=== PATIENT | female | born 1970 | race Caucasian/White ===

== ENCOUNTER 2017-03-25 10:58 | Inpatient (IN) | payer BC ==
[~2017-03-25] VITALS: Ht 172.7 cm; Wt 167.5 kg
--- NOTE | ~2017-03-25 | CO ---
Unit #: [id number] #: [id number] Patient: RUDI PEREZ [id number] [facility] [address] [facility]. [place], [place] [address] [id number] MR#: [id number] NAME: RUDI PEREZ ROOM: 237 Age: 47 Sex: F Admission Date: 03/25/2017 : 1970 Attending Physician: Alvin Villarreal M.D. Consultation Date: 03/25/2017 CONSULTATION REPORT HISTORY AND EXAM Miss Perez is a 47-year-old female who is otherwise healthy, who presented to [facility] emergency room with complaints of worsening episodic right upper quadrant pain and associated nausea. She denied fever, chills, vomiting or jaundice. She said she has been having episodic discomfort in the right upper quadrant radiating to the back for the last three months. In the emergency room a CT scan showed gallbladder wall thickening and a followup ultrasound showed small stones with wall thickening and pericholecystic fluid with a normal common bile duct. She was transferred here to [facility] for further evaluation and treatment. PAST MEDICAL HISTORY 1, para 1 by vaginal delivery. ALLERGIES No allergies to medication. HOME MEDICATION She is not on any home medications. FAMILY HISTORY She is unaware of any chronic or inheritable diseases. SOCIAL HISTORY Single, having been eight years ago. She has one biological child and five adopted children, denies the use of tobacco, alcohol or recreational drugs. She works for [email or web address]. REVIEW OF SYSTEMS As above. No fever, chills, night sweats, jaundice, or vomiting. PHYSICAL EXAMINATION VITAL SIGNS: On current examination temperature is 97.9, pulse 70, respirations 16, blood pressure 145/71. GENERAL: She is awake, alert and oriented, in no acute distress. Multiple family members in the room. She is obese. HEENT: Unremarkable. CARDIAC EXAM: Regular rhythm. LUNGS: Clear. ABDOMEN: No mass. No rebound. She does have some voluntary guarding in the right upper quadrant. EXTREMITIES: No edema. Unit #: [id number] #: [id number] Patient: RUDI PEREZ NEUROLOGICLALY: Grossly intact. SKIN: No skin rash or lesions. DIAGNOSTIC STUDIES LABORATORY: Comprehensive metabolic panel is within normal limits. CBC is unremarkable. Amylase and lipase are normal. Urinalysis and test are pending. ASSESSMENT AND PLAN The patient presents with episodic right upper quadrant pain that is worsening and on ultrasound and CT has findings consistent with early acute cholecystitis. She has been admitted to the hospital for hydration and antibiotics and we will add her onto the surgery schedule in the morning. I discussed laparoscopic cholecystectomy including risks, benefits, complications and the possibility of conversion to an open procedure. She understands and agrees to proceed. Dictated by... Rafal Stewart/matthias TD: 03/25/2017 18:57 JOB #: [id number] CONSULTATION REPORT Page 1 of 1 X Alvin Villarreal MD X CONSULTATION REPORT
--- NOTE | ~2017-03-25 | OR ---
Unit #: [id number] #: [id number] Patient: RUDI PEREZ [id number] [address] [place], [place] [address] [id number] I MR#: [id number] NAME: RUDI PEREZ ROOM: 237 Date of Procedure: 03/26/2017 Admission Date: 03/25/2017 Surgeon: Jean Claude Elizabeth Jr., M.D. : 1970 Attending Physician: Alvin Villarreal M.D. OPERATIVE REPORT INDICATIONS FOR PROCEDURE The patient is a 47-year-old morbidly obese white female, who presented complaining of abdominal pain, was worked up noted to have evidence of cholelithiasis with cholecystitis. It was felt the patient needed a laparoscopic cholecystectomy. She is brought to the operating room at this time for this procedure. She understands the procedure including the risks, including that of common duct injury, biliary leak, and bleeding, and intra-abdominal organ injury, and consents. PREOPERATIVE DIAGNOSES Chronic cholecystitis with cholelithiasis and biliary colic. POSTOPERATIVE DIAGNOSIS Chronic cholecystitis with cholelithiasis and biliary colic. ANESTHESIA General with endotracheal intubation and 0.5% Marcaine with epinephrine locally. PROCEDURE PERFORMED Laparoscopic cholecystectomy. DESCRIPTION OF PROCEDURE The patient was positioned in supine position. After being anesthetized and intubated, she was prepped and draped in routine fashion for laparoscopic cholecystectomy. A small supraumbilical incision was made approximately a centimeter in length. This was carried down to the fascia. The fascia in the umbilicus was lifted with 2 Israel clamps and a Veress needle introduced in the abdomen. The abdomen was then inflated with CO2 gas. A 5-mm port was introduced into the abdomen followed by the camera. There was no evidence of any injury related to introduction of the port or the Veress needle. Brief intra-abdominal exploration was carried out. The patient was noted to have a large globular liver and chronically inflamed gallbladder. Also, the omentum was very significant. Two 5-mm ports were placed laterally and an 11-mm port just to the right of the upper midline. An additional 5-mm port placed in the right upper quadrant abdominal wall area. At this point, the gallbladder was lifted. Dissection was carried out in the triangle of Calot, cystic duct which was small only 1 mm or so in diameter was isolated, hemoclipped x4 and divided approximately a 1 cm from its junction with the common duct. The common duct appeared normal. The cystic artery was identified, hemoclipped x3, and divided. The gallbladder was then removed from the bed with a hook Unit #: [id number] #: [id number] Patient: RUDI PEREZ cautery using a current of 20. After it was released, it was placed in an EndoCatch bag and brought out through the larger port site and sent to pathology. The larger port was replaced. Subhepatic space checked. There was some oozing from the gallbladder bed itself from acute and chronic inflammation and this was controlled with the Bovie cautery. It was decided that the area should be drained with a Heriberto-Kirk drain, so therefore, a 10 mm Heriberto-Kirk drain was placed in the subhepatic space and brought out through the lateral port site. Again, the area was checked. The clips on the cystic duct and cystic artery were intact with no evidence of any leak or bleeding. After hemostasis was again noted, the ports removed. There was no evidence of any bleeding from the port sites. The port sites were injected with 0.5% Marcaine with epinephrine locally. The fascia in the larger port site was approximated with a [id number] 0 Vicryl suture. Wounds were again irrigated. After hemostasis achieved with Bovie cautery, the skin edges were approximated with stainless-steel skin clips and skin stapling device. Sterile dressings were applied externally. Estimated blood loss less than 150 mL. The patient received less than 2000 mL crystalloid solution during the procedure. Sponges and instrument counts were correct x3. There was one drain used, which was a 10 mm Heriberto-Kirk drain used in the subhepatic space and no complications. The patient was taken to the recovery room with stable vital signs in satisfactory condition. Dictated by... Jean Claude Elizabeth Jr., M.D. JMB/samantha TD: 03/26/2017 14:43 JOB #: [id number] OPERATIVE REPORT Page 1 of 1 X Jean Claude Elizabeth MD X PROCEDURE OPERATIVE NOTE
--- NOTE | ~2017-03-25 | OR ---
Unit #: [id number] #: [id number] Patient: RUDI PEREZ [id number] [facility]. [place], [place] [address] [id number] I MR#: [id number] NAME: RUDI PEREZ ROOM: 237 Date of Procedure: 03/29/2017 Admission Date: 03/25/2017 Surgeon: Marcus Palmer M.D. : 1970 Attending Physician: Alvin Villarreal M.D. OPERATIVE REPORT PREOPERATIVE DIAGNOSES The patient is status post laparoscopic cholecystectomy and has demonstrable bile leak on HIDA scan. She has biliary drainage from the CONNIE drain. PROCEDURES PERFORMED Endoscopic retrograde cholangiopancreatography and biliary stent placement. POSTOPERATIVE DIAGNOSES 1. A preliminary upper gastrointestinal endoscopy was normal. 2. The papillary and ampulla were located in the normal position. The cholangiogram demonstrated bile leak near the cystic duct stump. After a limited sphincterotomy and demonstration of the bile leak, the duct was swept with a 9 to 12 mm retrieval balloon and no stones or debris was delivered. A 10-Polish x 7 cm biliary stent was then deployed with excellent biliary drainage demonstrated. RECOMMENDATIONS The patient's biliary drainage from the CONNIE drain should resolve over the next 24 to 48 hours. She can be started on diet as tolerated. We will repeat CBC and CMP tomorrow morning. She should be able to go home over the weekend. She will require a repeat ERCP and stent removal in 8 weeks' time. SEDATION USED MAC. DESCRIPTION OF PROCEDURE Following detailed explanations of potential risks and complications of an ERCP, namely perforation, bleeding, and complications related to sedation and pancreatitis, the patient was brought to GI lab and laid in the left semiprone position. Sedation using general anesthesia was given. A preliminary upper GI endoscopy was performed. The latter was normal. The lateral viewing duodenoscope was then advanced through the oral cavity into the esophagus and advanced into the stomach. Pylorus was intubated in usual fashion. Scope was advanced in deep descending duodenum. Upon shortening of the scope, major papilla and ampullary area was visualized en face. Using guidewire based technique, the common bile duct was cannulated in the first attempt. Contrast cholangiogram was obtained. The latter showed multiple filling defects in the common bile duct, which were most likely were air bubbles. We then proceeded with a limited sphincterotomy, about 9 to 10 mm sphincterotomy was performed. Using a 9 Unit #: [id number] #: [id number] Patient: ANA,RUDI to 12 mm retrieval balloon, the duct was then swept couple times. No stones or debris was delivered. An occlusion cholangiogram demonstrated leak near the cystic duct stump. A 10-Polish x 7 cm biliary stent was then deployed. Excellent biliary drainage was established. The scope and the accessories were then withdrawn. The patient returned to the recovery area. She tolerated the procedure without any postprocedure complications. Dictated by... Rafal Coughlin/samantha TD: 03/29/2017 19:35 JOB #: [id number] CC: Rafal Stewart III, M.D. OPERATIVE REPORT Page 1 of 1 X Marcus Palmer MD X PROCEDURE OPERATIVE NOTE
--- NOTE | ~2017-03-25 | BMI ---
[facility] DATE: 03/26/17 Patient: RUDI PEREZ Physician: SELVIN Address: [address] Room/Bed: [address] [place] [address], Zip: [place] [address] Admit Date: 03/25/17 Date of : [birth year] Height: 5 8 Weight: 369 167.5 HIGH BMI NOTE: DX: 47 Y.O. FEMALE ADMITTED FOR CHOLECYSTITIS ANTHROPOMETRICS: 5'8", WT: 369# (168 KG), BMI: 56.1 DIET: NPO RECOMMENDATIONS: 1. ONCE MEDICALLY FEASIBLE, ADVANCE DIET INDICATED TO CONSISTENT CARBOHYRDRATE + HEALTHY HEART TO PROMOTE GRADUAL WEIGHT LOSS TOWARDS HEALTHY BMI (19.0-25.0) OR +/-10%IBW RD WILL F/U PER PROTOCOL Respectfully, KEE LOOMIS MS, RD, LD [facility] cc: client file
--- NOTE | ~2017-03-25 | CR84 ---
[facility] A Service of [facility] RADIOLOGY TEXT RESULTS PATIENT: RUDI PEREZ LOCATION: [facility] : [birth year] UNIT #: [id number] AGE: [address]: Alvin Villarreal MD SEX: F ORDER DR: [id number] [facility]. [place], [place] [address] [id number] I MR#: [id number] Acc #: [id number] NAME: RUDI PEREZ : 1970 SEX: F STUDY DATE/TIME: 03/29/2017 16:34 UNIT: A ROOM: 237 STUDY DESCRIPTION: CR ERCP Biliary and Pancr SI Attending Physician: Alvin Villarreal M.D. Ordering Physician: Marcus Palmer M.D. MEDICAL IMAGING REPORT This report is preliminary unless electronic signature is present EXAM ERCP with fluoroscopy. DATE 03/29/2017 HISTORY Bile leak, status post laparoscopic cholecystectomy. COMPARISON HIDA scan with Kinevac 03/28/2017. Gallbladder ultrasound 03/25/2017. FINDINGS Five spot fluoroscopic images were obtained during ERCP procedure performed by Dr. Palmer. Fluoroscopy time 32 seconds was documented by the technologist. Contrast was injected in a retrograde fashion into the common bile ducts. Cholecystectomy clips are in place. There is active contrast extravasation near the patient's cystic duct stump. Findings are consistent with patient's known history of bile leak. No CBD stricture or retained CBD stones identified and the intrahepatic bile ducts are normal. Pancreatic duct was not sought. Please refer to the endoscopist's report for additional findings and recommendations. Dictated by... Mare Small M.D. [facility] A Service of [facility] RADIOLOGY TEXT RESULTS PATIENT: RUDI PEREZ LOCATION: [facility] : 74 UNIT #: [id number] AGE: [address]: Alvin Villarreal MD SEX: F ORDER DR: THIS IS AN ELECTRONICALLY VERIFIED REPORT Mare Small M.D. at 03/30/2017 9:41 PM Geno TD: 03/30/2017 16:13 JOB #: [id number] MEDICAL IMAGING REPORT Page 1 of 1 COPY
--- NOTE | ~2017-03-25 | DS ---
Unit #: [id number] #: [id number] Patient: RUDI PEREZ [id number] [address] [address] [id number] I MR#: [id number] NAME: RUDI PEREZ ROOM: 237 Age: 47 Sex: F Admission Date: 03/25/2017 : 1970 Discharge Date: 03/30/2017 Attending Physician: Alvin Villarreal M.D. DISCHARGE SUMMARY DIAGNOSES 1. Cholecystitis. 2. Cystic duct stump leak. PROCEDURES 1. Laparoscopic cholecystectomy. 2. ERCP with stent placement. HOSPITAL COURSE The patient is a 47-year-old lady who presented with acute cholecystitis. She underwent laparoscopic cholecystectomy. She was putting out bile from her Heriberto-Kirk drain. GI medicine saw and performed ERCP with stent. They identified a cystic duct stump leak. Drainage went down. She tolerated a regular diet. Labs improved. DISPOSITION The patient will be discharged home in good condition. DIET She is to follow a regular diet as tolerated. ACTIVITY Activity levels were discussed. FOLLOWUP She is to follow up with Dr. Elizabeth in one week. MEDICATIONS Regular home medications and [place] 7.5 mg q.4 p.r.n. Dictated by... Hao Trevino M.D. ISAURA/veronica TD: 03/30/2017 11:32 JOB #: [id number] Unit #: [id number] #: [id number] Patient: RUDI PEREZ DISCHARGE SUMMARY Page 1 of 1 X Hao Trevino MD X DISCHARGE SUMMARY
--- NOTE | ~2017-03-25 | NM21 ---
[facility] A Service of [facility] RADIOLOGY TEXT RESULTS PATIENT: RUDI PEREZ LOCATION: [facility] : 74 UNIT #: [id number] AGE: [address]: Alvin Villarreal MD SEX: F ORDER DR: [id number] [facility]. [place], [place] [address] [id number] I MR#: [id number] Acc #: [id number] NAME: RUDI PEREZ : 1970 SEX: F STUDY DATE/TIME: 03/28/2017 10:41 UNIT: [facility] ROOM: 237 STUDY DESCRIPTION: NM Hepatobiliary W GB Attending Physician: Alvin Villarreal M.D. Ordering Physician: Chele Mcrae III, M.D. MEDICAL IMAGING REPORT This report is preliminary unless electronic signature is present EXAM HIDA scan INDICATIONS Status post cholecystectomy March 26, 2017. The patient has a CONNIE drain within the right upper quadrant and has had increasing drainage and bilious material from this drain. Exam is requested to evaluate for bile leak. TECHNIQUE The patient was administered 6 mCi of technetium 99m Choletec. Sequential images were obtained through the right upper quadrant. FINDINGS There is prompt and homogeneous radiotracer uptake identified within the liver and radiotracer is seen within the small bowel on the 15-minute images. There is however bile seen accumulating within the patient's surgical drain and within the right upper quadrant characteristic of a bile leak. IMPRESSION This study is positive for a bile leak with radiotracer identified within the patient's CONNIE drain. Findings were called to Dr. Mcrae's office at his request. Dictated by... Naomie Ferris M.D. THIS IS AN ELECTRONICALLY VERIFIED REPORT Naomie Ferris M.D. at 03/28/2017 5:07 PM AFF/to TD: 03/28/2017 16:13 [facility] A Service of [facility] RADIOLOGY TEXT RESULTS PATIENT: RUDI PEREZ LOCATION: [facility] 01 : 74 UNIT #: [id number] AGE: [address]: Alvin Villarreal MD SEX: F ORDER DR: JOB #: [id number] MEDICAL IMAGING REPORT Page 1 of 1 COPY
--- NOTE | ~2017-03-25 | CO ---
Unit #: [id number] #: [id number] Patient: RUDI PEREZ [id number] [address] [address] [id number] I MR#: [id number] NAME: RUDI PEREZ ROOM: 237 Age: 47 Sex: F Admission Date: 03/25/2017 : 1970 Attending Physician: Alvin Villarreal M.D. Primary Care Physician: Chele Mcrae III, M.D. Consultation Date: 03/28/2017 CONSULTATION REPORT REASON FOR CONSULTATION Bile leak. HISTORY Ms. Perez is a 47-year-old white female who underwent laparoscopic cholecystectomy on 03/26/2017 after being seen with recurrent right upper quadrant abdominal pain for the past several months. These are intermittent and frequent. The patient was found to have a CT evidence of gallbladder wall thickening and gallstones and pericholecystic fluid with a normal bile duct. Today she underwent a HIDA scan and was found to have a bile leak. PAST MEDICAL HISTORY The patient has no significant past medical history. ALLERGIES She has no known drug allergies. MEDICATIONS Not on any regular medications. FAMILY HISTORY None of colon, pancreatic cancer or liver disease. SOCIAL HISTORY She has been and has one biological child and five adopted children. She does not smoke, drink alcohol, and works for [employer]. REVIEW OF SYSTEMS A detailed review of organ system does not reveal any recent weight loss. No history of fevers, chills or rigors. No history of headaches, seizures, chest pain or syncope. No history of cough, expectoration, or hemoptysis. No history of dysuria, hematuria or pyuria. No history of focal seizures or weakness. PHYSICAL EXAMINATION GENERAL: She is awake, alert and oriented, appears comfortable. VITAL SIGNS: Stable with a temperature of 98.6, pulse 73 per minute, respiratory rate 18, blood pressure 141/79. She weighs 369 pounds and feels that this is her baseline weight. HEENT: She has no pallor, icterus, lymphadenopathy or peripheral edema. CARDIOVASCULAR: Normal heart sounds. No murmurs of auscultation. LUNGS: Normal breath sounds. Good air entry. ABDOMEN: Soft, obese, nontender. Liver and spleen are not palpable. Unit #: [id number] #: [id number] Patient: ZEITZ,RUDI Bowel sounds normal. DIAGNOSTIC STUDIES LABORATORY DATA: Hemoglobin 11.2, white count 9.4, platelet count is 222, serum chemistry shows a BUN and creatinine of 8 and 0.7. Glucose 134, potassium 3.3, albumin is 3.1. AST, ALT, alk phos and bilirubin are normal. Beta HCG is negative. IMAGING STUDIES: HIDA scan is consistent with bile leak. CLINICAL IMPRESSION. Patient with postcholecystectomy bile leak. Needs a transpapillary placement of biliary stent. An ERCP as indicated will be scheduled for tomorrow. Pros, cons, procedure, potential risks, complications, including possibility of pancreatitis, perforation and bleeding will be discussed with the patient and she was reassured. Thank you for asking me to see this pleasant woman. Dictated by... Rafal Coughlin/dominick TD: 03/29/2017 08:54 JOB #: [id number] CONSULTATION REPORT Page 1 of 1 X Marcus Palmer MD X CONSULTATION REPORT
[2017-03-25] MEDS ORDERED: NO MEDICATIONS (16:19)
[2017-03-27 05:58] LABS: HEMATOCRIT 34.1 % (35.0-45.0); HEMOGLOBIN 10.9 gm/dL (12.0-16.0); MEAN CELL VOLUME 84.2 FL (83-96); MEAN CORPUSCULAR HEMOGLOBIN 26.9 PG (28-34); MEAN CORPUSCULAR HGB CONC 31.9 g/dL (30-36); MEAN PLATELET VOLUME 8.1 FL (6.5-11.5); RED BLOOD COUNT 4.05 X10e (3.90-5.30); RED CELL DISTRIBUTION WIDTH 15.3 % (11.0-15.5)
[2017-03-27 06:23] LABS: ALBUMIN SERUM 2.9 g/dL (3.5-5.0); BILIRUBIN,TOTAL 0.2 mg/dL (0.2-2.0); BUN/CREATININE RATIO 11.66; CALCIUM SERUM 8.4 mg/dL (8.4-10.2); CREATININE SERUM 0.6 mg/dL (0.6-1.4); GLOM FILT RATE Estimated 110.1 mL/min (>60); POTASSIUM 4.1 mmol/L (3.5-5.1); PROTEIN TOTAL SERUM 6.3 g/dL (6.0-8.3)
[2017-03-28 05:31] LABS: HEMATOCRIT 34.9 % (35.0-45.0); HEMOGLOBIN 11.2 gm/dL (12.0-16.0); MEAN CELL VOLUME 84.5 FL (83-96); MEAN PLATELET VOLUME 8.3 FL (6.5-11.5); RED BLOOD COUNT 4.13 X10e (3.90-5.30); RED CELL DISTRIBUTION WIDTH 15.5 % (11.0-15.5); WHITE BLOOD COUNT 9.4 X10e3 (4.0-10.5)
[2017-03-28 06:19] LABS: ALBUMIN SERUM 3.1 g/dL (3.5-5.0); BILIRUBIN,TOTAL 0.7 mg/dL (0.2-2.0); BUN/CREATININE RATIO 11.42; CALCIUM SERUM 8.1 mg/dL (8.4-10.2); CREATININE SERUM 0.7 mg/dL (0.6-1.4); GLOM FILT RATE Estimated 104.6 mL/min (>60); POTASSIUM 3.3 mmol/L (3.5-5.1); PROTEIN TOTAL SERUM 6.5 g/dL (6.0-8.3)
[2017-03-29 06:51] LABS: HEMATOCRIT 34.3 % (35.0-45.0); HEMOGLOBIN 11.1 gm/dL (12.0-16.0); MEAN CELL VOLUME 83.8 FL (83-96); MEAN CORPUSCULAR HGB CONC 32.3 g/dL (30-36); MEAN PLATELET VOLUME 8.4 FL (6.5-11.5); RED BLOOD COUNT 4.09 X10e (3.90-5.30); RED CELL DISTRIBUTION WIDTH 15.1 % (11.0-15.5); WHITE BLOOD COUNT 10.7 X10e3 (4.0-10.5)
[2017-03-29 07:04] LABS: PROTHROMBIN TIME (PATIENT) 10.4 SECONDS (10.0-11.7)
[2017-03-29 07:30] LABS: BILIRUBIN,TOTAL 0.8 mg/dL (0.2-2.0); CALCIUM SERUM 8.3 mg/dL (8.4-10.2); CREATININE SERUM 0.7 mg/dL (0.6-1.4); GLOM FILT RATE Estimated 104.6 mL/min (>60); POTASSIUM 3.4 mmol/L (3.5-5.1); PROTEIN TOTAL SERUM 6.6 g/dL (6.0-8.3)
[2017-03-30 04:47] LABS: HEMATOCRIT 34.9 % (35.0-45.0); HEMOGLOBIN 11.6 gm/dL (12.0-16.0); MEAN CELL VOLUME 83.5 FL (83-96); MEAN CORPUSCULAR HEMOGLOBIN 27.8 PG (28-34); MEAN CORPUSCULAR HGB CONC 33.2 g/dL (30-36); RED BLOOD COUNT 4.18 X10e (3.90-5.30); RED CELL DISTRIBUTION WIDTH 14.8 % (11.0-15.5); WHITE BLOOD COUNT 9.4 X10e3 (4.0-10.5)
[2017-03-30 05:18] LABS: ALBUMIN SERUM 3.1 g/dL (3.5-5.0); BILIRUBIN,TOTAL 1.3 mg/dL (0.2-2.0); CALCIUM SERUM 8.4 mg/dL (8.4-10.2); CREATININE SERUM 0.5 mg/dL (0.6-1.4); GLOM FILT RATE Estimated 116.9 mL/min (>60); POTASSIUM 3.9 mmol/L (3.5-5.1); PROTEIN TOTAL SERUM 6.6 g/dL (6.0-8.3)
[2017-03-30] MEDS ORDERED: NORCO 7.5-3251 EACH PO (07:34)
[2017-05-28] MEDS ORDERED: MULTI VITAMIN1 EACH PO (14:40)
== END 2017-03-30 08:34 | disposition home or self-care (01) | DRG 418 ==
LOC: C2A 10:58
PROVIDERS: Internal Medicine Gastroenterology; Surgery
PROC: 0FT44ZZ Resection of Gallbladder, Percutaneous Endoscopic Approach (ICD-10-PCS; principal; 2017-03-26 10:30)
PROC: 0F798DZ Dilation of Common Bile Duct with Intraluminal Device, Via Natural or Artificial Opening Endoscopic (ICD-10-PCS; 2017-03-29 16:22)
DX: K80.10 Calculus of gallbladder with chronic cholecystitis without obstruction (principal); K91.89 Other postprocedural complications and disorders of digestive system; E66.01 Morbid (severe) obesity due to excess calories
CPT/HCPCS: 74330; 78226; 80053; 82150; 83690; 84703; 85027; 85610; 88304; 94010; A9537; C9113; J0330; J1100; J1170; J1610; J1650; J2250; J2270; J2405; J2543; J2710; J3010